=== PATIENT | female | born 1975 | race African-American/Black ===

== ENCOUNTER 2017-04-25 10:24 | Emergency (ER) | payer OTHER ==
[~2017-04-25] VITALS: Ht 165.1 cm; Wt 52.3 kg
[~2017-04-25 10:24] MED LIST: SUMA25TA9 PO
[2017-04-25] MEDS ORDERED: IBUPROFEN 800 MG TABLET PO ONE (11:45)
[2017-04-25 13:30] VITALS: BP 108/62
== END 2017-04-25 14:09 | disposition home or self-care (01) ==
LOC: EMS 10:25
DX: S92.412A Displaced fracture of proximal phalanx of left great toe, initial encounter for closed fracture (principal); Z88.1 Allergy status to other antibiotic agents; X58.XXXA Exposure to other specified factors, initial encounter; Y93.02 Activity, running; Y92.89 Other specified places as the place of occurrence of the external cause; Y99.8 Other external cause status
CPT/HCPCS: 99284

== ENCOUNTER 2017-06-20 13:10 | Emergency (ER) | payer OTHER ==
[~2017-06-20] VITALS: Ht 165.1 cm; Wt 51.0 kg
[2017-06-20] MEDS ORDERED: LIDOCAINE HCL/PF 1% 2 ML VIAL IM ONE (14:15)
[2017-06-20] MEDS ORDERED: CefTRIAXone SODIUM 1 GM/VIAL IM ONE (14:15)
[2017-06-20 14:49] VITALS: BP 120/72
== END 2017-06-20 15:42 | disposition home or self-care (01) ==
LOC: EMS 13:13
DX: N39.0 Urinary tract infection, site not specified (principal); L29.9 Pruritus, unspecified; Z88.1 Allergy status to other antibiotic agents
CPT/HCPCS: 81002; 96372; 99283; J0696; J3490

== ENCOUNTER 2018-10-06 15:19 | Emergency (ER) | payer OTHER ==
[~2018-10-06] VITALS: Ht 165.1 cm; Wt 59.1 kg
[2018-10-06 15:33] VITALS: BP 139/74
== END 2018-10-06 16:44 | disposition left against medical advice (07) ==
LOC: EMS 15:20
DX: R11.2 Nausea with vomiting, unspecified (principal); Z53.21 Procedure and treatment not carried out due to patient leaving prior to being seen by health care provider

== ENCOUNTER 2019-03-08 18:57 | Emergency (ER) | payer OTHER ==
[~2019-03-08] VITALS: Ht 165.1 cm; Wt 58.2 kg
[2019-03-08 19:31] LABS: BASOPHILS % (AUTO) 0.3 % (0.0-2.0); EOSINOPHILS % (AUTO) 1.1 % (1.0-6.0); HEMATOCRIT 40.1 % (36-46); HEMOGLOBIN 13.3 g/dL (12.0-16.0); LYMPHOCYTES # (AUTO) 2.9 K/uL (1.0-4.8); LYMPHOCYTES % (AUTO) 29.5 % (22.0-44.0); MEAN CORPUSCULAR HGB CONC 33.2 G/dL (31.0-37.0); MEAN CORPUSCULAR VOLUME 90 fL (80-100); MONOCYTES # (AUTO) 0.6 K/uL (0.1-1.0); MONOCYTES % (AUTO) 5.9 % (2.0-9.0); NEUTROPHILS # (AUTO) 6.3 K/uL (1.8-7.7); NEUTROPHILS % (AUTO) 63.2 % (40.0-70.0); PLATELET COUNT (AUTO) 287 K/uL (150-450); RED BLOOD CELL COUNT(AUTO) 4.44 MIL/uL (4.00-5.20); RED CELL DISTRIBUTION WIDTH 13.1 % (11.5-14.5)
[2019-03-08 19:46] LABS: ANION GAP 11 mmol/L (8-16); CALCIUM, TOTAL 9.4 mg/dL (8.8-10.5); CARBON DIOXIDE 24 mmol/L (22-29); CHLORIDE 102 mmol/L (98-107); CREATININE 1.15 mg/dL (0.60-1.30); GLOMERULAR FILTR. RATE CALC > 60 mL/min (>60); GLUCOSE,RANDOM 92 mg/dL (70-110); POTASSIUM 3.5 mmol/L (3.5-5.1); SODIUM SERUM 137 mmol/L (136-145); UREA NITROGEN, BLOOD 18 mg/dL (7-18)
[2019-03-08 20:01] LABS: ALANINE AMINOTRANSFERASE 15 U/L (12-78); ALBUMIN 4.1 g/dL (3.4-5.0); ALKALINE PHOSPHATASE 69 U/L (46-116); ASPARTATE AMINOTRANSFERASE 17 U/L (15-37); BILIRUBIN,TOTAL 0.5 mg/dL (0.1-1.0); TOTAL PROTEIN, SERUM 8.6 g/dL (6.4-8.2)
[2019-03-08 22:40] VITALS: BP 124/68
== END 2019-03-08 22:50 | disposition home or self-care (01) ==
LOC: EMS 18:57
DX: R07.89 Other chest pain (principal); G43.909 Migraine, unspecified, not intractable, without status migrainosus; Z79.899 Other long term (current) drug therapy; Z88.8 Allergy status to other drugs, medicaments and biological substances
CPT/HCPCS: 93005

== ENCOUNTER 2019-09-15 08:30 | Emergency (ER) | payer OTHER ==
[~2019-09-15] VITALS: Ht 162.6 cm; Wt 59.1 kg
[2019-09-15] MEDS ORDERED: IBUPROFEN 400 MG TABLET PO ONE (09:45)
[2019-09-15] MEDS ORDERED: ACETAMINOPHEN 325 MG TABLET PO ONE (09:45)
[2019-09-15 12:51] VITALS: BP 123/73
== END 2019-09-15 12:53 | disposition home or self-care (01) ==
LOC: EMS 08:31
DX: M79.672 Pain in left foot (principal); Z88.1 Allergy status to other antibiotic agents
CPT/HCPCS: 73700

== ENCOUNTER 2024-07-22 10:34 | Emergency (ER) | payer OTHER ==
[~2024-07-22] VITALS: Ht 165.1 cm; Wt 65.9 kg
[~2024-07-22 10:34] MED LIST changes: +SUMA25TA15 PO; -SUMA25TA9 PO
[2024-07-22] MEDS ORDERED: SUMA100T21 PO (12:09)
[2024-07-22] MEDS: IBUPROFEN 600 MG TABLET PO ONE (12:13)
[2024-07-22] MEDS: LIDOCAINE 5% TRANSDERMAL PATCH TD ONE (12:14)
[2024-07-22 12:38] LABS: BASOPHILS % (AUTO) 0.2 % (0.0-2.0); EOSINOPHILS % (AUTO) 1.8 % (1.0-6.0); HEMATOCRIT 37.5 % (36-46); HEMOGLOBIN 12.6 g/dL (12.0-16.0); LYMPHOCYTES # (AUTO) 2.3 K/uL (1.0-4.8); LYMPHOCYTES % (AUTO) 35.8 % (22.0-44.0); MEAN CORPUSCULAR HEMOGLOBIN 31.4 pg (26.0-34.0); MEAN CORPUSCULAR HGB CONC 33.5 G/dL (31.0-37.0); MEAN CORPUSCULAR VOLUME 94 fL (80-100); MONOCYTES # (AUTO) 0.4 K/uL (0.1-1.0); MONOCYTES % (AUTO) 5.9 % (2.0-9.0); NEUTROPHILS # (AUTO) 3.6 K/uL (1.8-7.7); NEUTROPHILS % (AUTO) 56.3 % (40.0-70.0); PLATELET COUNT (AUTO) 276 K/uL (150-450); RED BLOOD CELL COUNT(AUTO) 4.01 MIL/uL (4.00-5.20); RED CELL DISTRIBUTION WIDTH 12.8 % (11.5-14.5); WHITE BLOOD COUNT (AUTO) 6.3 K/uL (4.5-11.0)
[2024-07-22 12:44] LABS: ANION GAP 7 mmol/L (8-16); CALCIUM, TOTAL 8.7 mg/dL (8.8-10.5); CARBON DIOXIDE 28 mmol/L (22-29); CHLORIDE 104 mmol/L (98-107); CREATININE 0.91 mg/dL (0.60-1.30); GLOMERULAR FILTR. RATE CALC > 60 mL/min (>60); GLUCOSE,RANDOM 92 mg/dL (70-110); POTASSIUM 4.2 mmol/L (3.5-5.1); SODIUM SERUM 139 mmol/L (136-145); UREA NITROGEN, BLOOD 12 mg/dL (7-18)
[2024-07-22 12:53] LABS: TROPONIN I-HIGH SENSITIVITY Less Than 4 ng/L (<51)
[2024-07-22 12:55] LABS: HCG,QUANTITATIVE < 1 mIU/mL (0-6)
[2024-07-22 13:45] VITALS: TEMP 97.8
[2024-07-22] MEDS ORDERED: IBUP-1492 PO (13:46)
[2024-07-22] MEDS ORDERED: CYCL-448 PO (13:46)
[2024-07-22 13:58] VITALS: BP 121/69; PULSE 72; RESP 18; O2SAT 99
== END 2024-07-22 14:06 | disposition home or self-care (01) ==
LOC: EMS 10:34
DX: M62.830 Muscle spasm of back (principal); G43.909 Migraine, unspecified, not intractable, without status migrainosus; Z88.1 Allergy status to other antibiotic agents; Z32.02 Encounter for pregnancy test, result negative
CPT/HCPCS: 71046; 80048; 84484; 84702; 85025; 93005; 99285; 36415-L1; 36415-TC

== ENCOUNTER 2024-11-18 14:49 | Emergency (ER) | payer OTHER ==
[~2024-11-18] VITALS: Ht 165.1 cm; Wt 66.0 kg
[~2024-11-18 14:49] MED LIST changes: +CYCL-448 PO; +IBUP-1492 PO; +SUMA100T21 PO; -SUMA25TA15 PO
[2024-11-18 14:57] VITALS: BP 131/75; PULSE 84; RESP 20; TEMP 98.6; O2SAT 98
[2024-11-18] MEDS ORDERED: LIDO700A15 TP (15:39)
[2024-11-18] MEDS ORDERED: ACET-3385 PO (15:39)
[2024-11-18] MEDS ORDERED: IBUP-1492 PO (15:39)
[2024-11-18] MEDS: KETOROLAC TROMETHAMINE 30 MG/ML VIAL IM ONE (15:56)
[2024-11-18] MEDS: ACETAMINOPHEN 500 MG TABLET PO ONE (15:57)
[2024-11-18] MEDS: LIDOCAINE 5% TRANSDERMAL PATCH TD ONE (15:57)
== END 2024-11-18 16:30 | disposition home or self-care (01) ==
LOC: EMS 14:49
DX: S39.012A Strain of muscle, fascia and tendon of lower back, initial encounter (principal); Z88.1 Allergy status to other antibiotic agents; X58.XXXA Exposure to other specified factors, initial encounter; Y93.89 Activity, other specified; Y92.89 Other specified places as the place of occurrence of the external cause; Y99.8 Other external cause status
CPT/HCPCS: 99283; 96372; J1885

== ENCOUNTER 2025-09-14 18:21 | Emergency (ER) | payer OTHER ==
[~2025-09-14] VITALS: Ht 165.1 cm; Wt 65.9 kg
[~2025-09-14 18:21] MED LIST changes: +ACET-3385 PO; -CYCL-448 PO; +LIDO-57 TP
[2025-09-14 19:27] LABS: PLATELET COUNT (AUTO) 334 K/uL (150-450); RED BLOOD CELL COUNT(AUTO) 4.37 MIL/uL (4.00-5.20); RED CELL DISTRIBUTION WIDTH 12.8 % (11.5-14.5); WHITE BLOOD COUNT (AUTO) 8.2 K/uL (4.5-11.0)
[2025-09-14 19:44] LABS: CALCIUM, TOTAL 9.0 mg/dL (8.8-10.5); CREATININE 0.90 mg/dL (0.60-1.30); GLOMERULAR FILTR. RATE CALC > 60 mL/min (>60); GLUCOSE,RANDOM 125 mg/dL (70-110); SODIUM SERUM 141 mmol/L (136-145); UREA NITROGEN, BLOOD 12 mg/dL (7-18)
[2025-09-14 19:47] LABS: APPEARANCE,URINE CLEAR (CLEAR); GLUCOSE, URINE (UA) NEGATIVE (NEGATIVE); LEUKOCYTE ESTERASE ,URINE NEGATIVE (NEGATIVE); NITRATE,URINE NEGATIVE (NEGATIVE); OCCULT BLOOD,URINE TRACE (NEGATIVE); SPECIFIC GRAVITIY, URINE 1.010 (1.003-1.030)
[2025-09-14 19:55] LABS: TROPONIN I-HIGH SENSITIVITY 4 ng/L (<51)
[2025-09-14 20:00] LABS: SQUAMOUS EPITHELIAL CELL,UR Rare /LPF (None Seen)
[2025-09-14] MEDS: CYCLOBENZAPRINE HCL 10 MG TABLET PO ONE (21:34)
[2025-09-14] MEDS: KETOROLAC TROMETHAMINE 30 MG/ML VIAL IM ONE (21:35)
[2025-09-14] MEDS: LIDOCAINE 5% TRANSDERMAL PATCH TD ONE (21:36)
[2025-09-14 21:42] LABS: TROPONIN I-HIGH SENSITIVITY 4 ng/L (<51)
[2025-09-14 22:15] VITALS: BP 111/67; PULSE 87; RESP 18; TEMP 98.1; O2SAT 100
[2025-09-14] MEDS ORDERED: CYCL-448 PO (22:16)
[2025-09-14] MEDS ORDERED: IBUP-1492 PO (22:16)
== END 2025-09-14 22:36 | disposition home or self-care (01) ==
LOC: EMS 18:25
DX: R07.89 Other chest pain (principal); M62.838 Other muscle spasm; F41.9 Anxiety disorder, unspecified; G43.909 Migraine, unspecified, not intractable, without status migrainosus; G89.29 Other chronic pain; M54.50 Low back pain, unspecified; Z88.1 Allergy status to other antibiotic agents
CPT/HCPCS: 99285; 71045; 80048; 81001; 84484; 85025; 36415; 93005; 96372; J1885